=== PATIENT | female | born 1955 | race Caucasian/White ===

== ENCOUNTER 2016-10-27 07:44 | Emergency (ER) | payer OTHER ==
[2016-10-27 08:04] VITALS: BP 126/70
[2016-10-27] MEDS ORDERED: Ketorolac 10 MG Tab PO ONE (08:40)
--- NOTE | 2016-10-27 08:45 | EDM.PDOC ---
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 This morning she was helping with posts and two of the posts smashed her right hand fingers numbers 2-4. Rates pain a 7/10. She denies any other complaints. She did not hit her head or lose consciousness. Symptom Onset Date: 10/27/16 Occurred When: just prior to arrival Occurred Where: work Method of Injury: direct blow Severity: moderate Pain/Injury Location: Reports: upper extremity, right Consciousness: Reports: no loss of consciousness Associated Symptoms: Reports: no other symptoms Allergies/ADRs: Allergies No Known Allergies Allergy (Verified 10/27/16 08:00) Home Medications: Ambulatory Orders . [No Known Home Meds] 10/27/16 [Confirmed 10/27/16] Past Medical History Musculoskeletal History: Reports: Osteoporosis - Past Surgical History Female Surgical History: Reports: Hysterectomy Social & Family History - Tobacco Use Smoking Status *Q: Unknown Ever Smoked - Recreational Drug Use Recreational Drug Use: No Review of Systems - Review of Systems Review Of Systems: ROS reveals no pertinent complaints other than HPI. Trauma Exam - Physical Exam Exam: See Below Exam Limited By: No limitations General Appearance: Reports: alert, WD/WN, mild distress Head: Reports: atraumatic, normocephalic Extremities: Reports: joint effusion, pain with movement, tenderness, other ( right side fingers 2-4 are edematous, 3rd finger more than the others. Range of motion normal in 2nd and 4th, poor ROM to middle. Hematoma to distal 3rd, small laceration to dip area of 3rd, palmar side) Neurologic: Reports: no motor/sensory deficits, alert, normal mood/affect, oriented x 3 Skin: Reports: Normal color, Warm/dry - [place] Coma Score Best Eye Response ([place]): (4) open spontaneously Best Verbal Response ([place]): (5) oriented Best Motor Response ([place]): (6) obeys commands Course - Vital Signs Last Recorded V/S: Last Vital Signs Temp 35.5 C 10/27/16 07:50 Pulse 76 10/27/16 07:50 Resp 20 10/27/16 07:50 BP 126/70 10/27/16 07:50 Pulse Ox - Orders/Labs/Meds Orders: Active Orders 24 hr Category Date Time Status Hand Comp Min 3V Rt [CR] Stat Exams 10/27/16 08:40 Ordered Ketorolac [Toradol] Med 10/27/16 08:40 Once 10 mg PO ONETIME ONE - Re-Assessments/Exams Free Text/Narrative Re-Assessment/Exam: 10/27/16 08:45 x-ray ordered 10/27/16 09:20 review of x-ray and radiologist read confirm acute distal phalanx fracture of 4th digit of right hand. No foreign objects Departure - Departure Time of Disposition: 09:30 Disposition: Home, Self-Care 01 Condition: good Clinical Impression: Fracture of distal phalanx of finger of right hand Instructions: Finger Fracture, [id number], Crush Injury, Fingers or Toes, [id number] Forms: ED Department Discharge Additional Instructions: Elevate your hand as much as you can. This will help reduce swelling. Do not leave your hand hanging for long periods of time as this will increase the swelling. Use ice to your fingers to alleviate your pain and swelling. You can work, but I recommend that you do not use your right hand to lift object. Use ibuprofen or aleve, as well as tylenol for pain and swelling. I also recommend that you see a primary doctor in 7-10 days for follow up x- rays. Please call with any questions or concerns. - Problem List & Annotations (1) Fracture of distal phalanx of finger of right hand SNOMED Code(s): 56681363 Code(s): S62.639A - DISP FX OF DISTAL PHALANX OF UNSP FINGER, INIT FOR CLOS FX Status: Acute Priority: Low Current Visit: Yes - Problem List Review Problem List Initiated/Reviewed/Updated: Yes - My Orders Last 24 Hours: My Active Orders 10/27/16 08:40 Hand Comp Min 3V Rt [CR] Stat Ketorolac [Toradol] 10 mg PO ONETIME ONE - Assessment/Plan Last 24 Hours: My Active Orders 10/27/16 08:40 Hand Comp Min 3V Rt [CR] Stat Ketorolac [Toradol] 10 mg PO ONETIME ONE Assessment:: Distal 4th digit phalanx fracture Plan: Elevate your hand as much as you can. This will help reduce swelling. Do not leave your hand hanging for long periods of time as this will increase the swelling. Use ice to your fingers to alleviate your pain and swelling. You can work, but I recommend that you do not use your right hand to lift object. Use ibuprofen or aleve, as well as tylenol for pain and swelling. I also recommend that you see a primary doctor in 7-10 days for follow up x- rays. Please call with any questions or concerns.
== END 2016-10-27 09:30 | disposition home or self-care (01) ==
LOC: VM.ED 07:44
DX: S62.634A Displaced fracture of distal phalanx of right ring finger, initial encounter for closed fracture (principal); Z90.710 Acquired absence of both cervix and uterus; W23.0XXA Caught, crushed, jammed, or pinched between moving objects, initial encounter
CPT/HCPCS: 73130; 99283; A9270

== ENCOUNTER 2022-06-25 14:47 | Emergency (ER) | payer OTHER ==
[2022-06-25 15:06] VITALS: BP 100/72; PULSE 85
== END 2022-06-25 15:20 | disposition home or self-care (01) ==
LOC: VM.ED 14:47
DX: S50.01XA Contusion of right elbow, initial encounter (principal); S70.02XA Contusion of left hip, initial encounter; S00.83XA Contusion of other part of head, initial encounter; W18.30XA Fall on same level, unspecified, initial encounter; Y92.411 Interstate highway as the place of occurrence of the external cause
CPT/HCPCS: 73080-RT; 99283

== ENCOUNTER 2022-08-06 12:39 | Emergency (ER) | payer OTHER ==
[2022-08-06 16:33] VITALS: BP 110/73; PULSE 75
== END 2022-08-06 15:30 | disposition home or self-care (01) ==
LOC: VM.ED 12:39
DX: S80.211A Abrasion, right knee, initial encounter (principal); W18.30XA Fall on same level, unspecified, initial encounter; Y99.0 Civilian activity done for income or pay
CPT/HCPCS: 73560-RT; 73590-RT; 99283